=== PATIENT | male | born 1955 | race Two or more races ===

== ENCOUNTER 2022-12-24 15:35 | Emergency (ER) | payer MEDICARE, OTHER ==
[~2022-12-24] VITALS: Ht 162.6 cm; Wt 65.9 kg
[2022-12-24 15:38] VITALS: TEMP 99.2
[2022-12-24] MEDS ORDERED: DULO20CA71 PO (15:46)
[2022-12-24] MEDS ORDERED: LOSA-382 PO (15:46)
[2022-12-24 18:45] VITALS: BP 145/95; PULSE 75; RESP 12
[2022-12-24] MEDS ORDERED: LIDOCAINE 5% TRANSDERMAL PATCH TD ONE (18:45)
[2022-12-24] MEDS ORDERED: ACYC-138 PO (18:50)
[2022-12-24] MEDS ORDERED: [UNRECOGNIZED DRUG - CODE] TD (18:51)
[2022-12-24] MEDS ORDERED: TRAM-559 PO (18:52)
== END 2022-12-24 19:01 | disposition home or self-care (01) ==
LOC: EMS 15:40
DX: B02.9 Zoster without complications (principal); I10 Essential (primary) hypertension; Z85.9 Personal history of malignant neoplasm, unspecified; Z85.72 Personal history of non-Hodgkin lymphomas
CPT/HCPCS: 99283